=== PATIENT | female | born 1940 | race Caucasian/White ===

== ENCOUNTER → 2017-11-27 | Outpatient (CLI) | payer OTHER | LOC: FIMAGING 13:49 | PROVIDERS: ATTEND Internal Medicine | DX: Z12.31 Encounter for screening mammogram for malignant neoplasm of breast (principal) ==

== ENCOUNTER 2018-07-09 05:41 | Day surgery (SDC) | payer OTHER ==
--- NOTE | 2018-07-08 17:42 | GHP ---
[f rep st] PREOP HISTORY AND PHYSICAL DATE OF ADMISSION: 07/09/2018 ADMISSION DIAGNOSIS: Right shoulder rotator cuff tear. HISTORY OF PRESENT ILLNESS: Jenny is a 78-year-old female with an injury to her right shoulder, mary led to improve with conservative management. We obtained an MRI, which showed a complete supraspinat us cuff tear. Decision has been made to proceed with a right shoulder rotator cuff repair arthroscop ically. PAST MEDICAL HISTORY: Hypertension. PAST SURGICAL HISTORY: Knee arthroscopy in 2017. MEDICATIONS: Lisinopril 20 mg daily. ALLERGIES: No known drug allergies. SOCIAL HISTORY: She is . Lives here in town with her . Does not smoke. Occasional u se of alcohol. REVIEW OF SYSTEMS: No shortness of breath or chest pain. PHYSICAL EXAM: GENERAL: Healthy-appearing 78-year-old female. Alert oriented x3. VITALS: She is 5 feet 5 inches tall, weighs 130 pounds. Blood pressure is 118/66, heart rate is 69, respiratory rate is 14 on room air. HEENT: Normocephalic, atraumatic. Extraocular muscles intact. NECK: Supple. There is no lymphadenopathy. No JVD. CHEST: Clear to auscultation. CARDIOVASCULAR: Regular rate and rhythm. ABDOMEN: Soft, nontender, nondistended. EXTREMITIES: Focusing on the right shoulder, there is no obvious deformity or atrophy in the supraspinatus, infraspinatus, fossa. A little promi nence over the AC joint. She is tender at the rotator interval in the long head of the biceps. Acti ve range of motion. She has full extension, flexes to 150 degrees. Passively, I can get her to 175 degrees. There is 45 degrees of active external rotation, past fingers 75 degrees. Internal rotatio n, she can get her thumb to L1. Supraspinatus strength 4- out of 5, infraspinatus 4 out of 5. Subsc apularis 4+ out of 5. Positive impingement sign. Positive Speed test. 1+ sulcus sign. Negative ap prehension sign. IMAGING: MRI is reviewed. Full-thickness tear supraspinatus, minimal retraction. Articular cartila ge is in good shape. She has some partial fraying and tearing of the intra-articular segment of the biceps tendon. Degenerative fraying of the superior labrum, type 2 acromion with some subacromial bu rsitis. There is a large osteophyte off the AC joint. ASSESSMENT: Rotator cuff tear, right shoulder. PLAN: I recommend proceeding with a rotator cuff repair, subacromial decompression, distal clavicle excision, possible biceps tenodesis, and a labral debridement. This was described in detail to Cesia shaffer. Risks and benefits of the procedure including stiffness, tear of the repair necessitating further surgery, long period of immobilization 4 to 6 weeks in a sling and abduction pillow and physical the rapy, recovery time of 6 months to 1 year. She understands this, wishes to proceed. Her preoperativ e paperwork was completed today in the office. /[id number]/MODL
[2018-07-09] MEDS ORDERED: ceFAZolin 2 GM/DEXTROSE 100 ML IV ONE (05:48)
[2018-07-09] MEDS ORDERED: LR 1,000 ML IV ONE (05:49)
--- NOTE | 2018-07-09 06:45 | PDHPUP ---
History & Physical Update H&P update statement: This history and physical update is based on an assessment of the patient which was completed after admission or registration (within 24 hours), but prior to the surgery/procedure. H&P update: H&P reviewed & patient examined, no change in patient's condition since H&P completed
[2018-07-09] MEDS ORDERED: MIDAZOLAM 2 MG/2 ML VIAL IVP ONE (06:52)
--- NOTE | 2018-07-09 06:54 | PDANEPAE ---
ANE History of Present Illness R RTC tear s/f repair ANE Past Medical History - Cardiovascular History Hx Hypertension: Yes Hx Arrhythmias: No Hx Chest Pain: No Hx Coronary Artery / Peripheral Vascular Disease: No Hx CHF / Valvular Disease: No Hx Palpitations: No Cardiovascular History Comment: minor murmur never had any problems - Pulmonary History Hx COPD: No Hx Asthma/Reactive Airway Disease: No Hx Recent Upper Respiratory Infection: No Hx Oxygen in Use at Home: No Hx Sleep Apnea: No Sleep Apnea Screening Result - Last Documented: Negative Pulmonary History Comment: enviromental allergies - Neurologic History Hx Cerebrovascular Accident: No Hx Seizures: No Hx Dementia: No - Endocrine History Hx Diabetes: No - Renal History Hx Renal Disorders: No - Liver History Hx Hepatic Disorders: No - Neurological & Psychiatric Hx Hx Neurological and Psychiatric Disorders: No - Cancer History Hx Cancer: Yes Cancer History Comment: skin cancer - Congenital Disorder History Hx Congenital Disorders: No - Other Health History Other Health History: none - Chronic Pain History Chronic Pain: No - Surgical History Prior Surgeries: meniscus sx 2017. shoulder sx 20 yrs ago ANE Review of Systems Review of Systems: - Exercise capacity METS (RN): 4 METS ANE Patient History - Allergies Allergies/Adverse Reactions: iodine Allergy (Verified 07/09/18 06:15) shellfish derived Allergy (Verified 07/09/18 06:15) - Home Medications Home medications: home medication list seen and reviewed Home Medications: Aleve 07/02/18 [Last Taken 06/25/18] Lisinopril 07/02/18 [Last Taken 07/08/18] Multivitamin 07/02/18 [Last Taken 07/02/18] - NPO status NPO Status: no food or drink >8 hours NPO Since - Liquids (Date): 07/08/18 NPO Since - Liquids (Time): 22:00 NPO Since - Solids (Date): 07/08/18 NPO Since - Solids (Time): 20:30 - Anes Hx Anes Hx: no prior problems - Smoking Hx Smoking Status: Former smoker - Alcohol Use Alcohol Use: Occasionally - Family Anes Hx Family Anes Hx: none Family Hx Anesthesia Complications: none ANE Labs/Vital Signs - Vital Signs Blood Pressure: 136/92 Heart Rate: 54 Respiratory Rate: 16 O2 Sat (%): 91 Height: 165.1 cm Weight: 56.699 kg ANE Physical Exam - Airway Neck exam: FROM Mallampati Score: Class 2 - Pulmonary Pulmonary: no respiratory distress - Cardiovascular Cardiovascular: regular rate and rhythym - ASA Status ASA Status: II ANE Anesthesia Plan Anesthesia Plan: GA w LMA Regional Anesthesia: interscalene BP NB
[2018-07-09] MEDS ORDERED: CALCIUM CHLORIDE 1 GM/10 ML INJ ONE (06:58)
[2018-07-09] MEDS ORDERED: THROMBIN (BOVINE) 5,000 UNIT VIAL TP ONE (06:58)
[2018-07-09] MEDS ORDERED: BUPIVACAINE 0.5% 30 ML SDV ONE (06:58)
[2018-07-09] MEDS ORDERED: EPINEPHrine 30 MG/30 ML MDV (0.1 MG/0.1 ML) ONE (06:59)
[2018-07-09] MEDS ORDERED: LIDO/EPI 1% **Not for Epidural 20 ML MDV ONE (06:59)
[2018-07-09] MEDS ORDERED: LIDO/EPI 1% **for epidural** 30 ML SDV ONE (07:08)
[2018-07-09] MEDS ORDERED: fentaNYL 100 MCG/2 ML INJ ONE (07:10)
[2018-07-09] MEDS ORDERED: PROPOFOL/EMULSION 500 MG/50 ML BOTTLE IV ONE (07:10)
[2018-07-09] MEDS ORDERED: LIDOCAINE 2% JELLY 6 ML TOPICAL SYR ONE (07:15)
[2018-07-09] MEDS ORDERED: ONDANSETRON 4 MG/2 ML VIAL ONE (07:15)
[2018-07-09] MEDS ORDERED: DEXAMETHASONE 4 MG/ML VIAL ONE ×2 (07:16)
[2018-07-09] MEDS ORDERED: ePHEDrine SULFATE 25 MG/5 ML SYR ONE (08:01)
--- NOTE | 2018-07-09 08:52 | POSTOPPROG ---
Post Op Note Date of Operation: 07/09/18 Surgeon: Armando Dukes Greek Professor: Napoleon Rios Anesthesiologist: Onofre Pre-op Diagnosis: RC tear Rt Post-op Diagnosis: same Procedure: RCR, SAD, labral debridement Findings: full thickness RC tear Inf/Abcess present in the surg proc area at time of surgery?: No EBL: Minimal Complications: none
[2018-07-09] MEDS ORDERED: DEXAMETHASONE 4 MG/ML VIAL IVP PRN (09:23)
[2018-07-09] MEDS ORDERED: ALBUTEROL 3 ML DEYVIAL IH PRN (09:23)
[2018-07-09] MEDS ORDERED: NALOXONE HCL 0.4 MG/ML INJ IVP PRN (09:23)
[2018-07-09] MEDS ORDERED: oxyCODONE IR 5 MG TAB PO PRN (09:23)
[2018-07-09] MEDS ORDERED: LR 500 ML IV PRN (09:23)
[2018-07-09] MEDS ORDERED: PROMETHAZINE HCL 25 MG/ML INJ IVP PRN (09:23)
[2018-07-09] MEDS ORDERED: LABETALOL HCL 5 MG/ML 20 ML MDV IVP PRN (09:23)
[2018-07-09] MEDS ORDERED: METOCLOPRAMIDE 10 MG/2 ML VIAL IVP PRN (09:23)
[2018-07-09] MEDS ORDERED: fentaNYL 100 MCG/2 ML INJ IVP PRN (09:23)
[2018-07-09] MEDS ORDERED: MEPERIDINE 25 MG/0.5 ML AMP IVP PRN (09:23)
[2018-07-09] MEDS ORDERED: PHENYLEPHRINE HCL 100 MCG/ML SYR IVP PRN (09:23)
[2018-07-09] MEDS ORDERED: ONDANSETRON 4 MG/2 ML VIAL IVP PRN (09:23)
[2018-07-09 10:02] VITALS: BP 136/78
--- NOTE | 2018-07-09 10:08 | GOP ---
[f rep st] OPERATIVE REPORT DATE OF OPERATION: 07/09/2018 SURGEON: Armando Dukes MD DISTRIBUTION WAREHOUSE MANAGER: Ravin Rios, SHARED SERVICES REPRESENTATIVE, [facility] ANESTHESIA: Interscalene block with general. ANESTHESIOLOGIST: Dr. Adhikari. PREOPERATIVE DIAGNOSIS: Right shoulder rotator cuff tear. POSTOPERATIVE DIAGNOSIS: Right shoulder rotator cuff tear. PROCEDURE PERFORMED: 1. Arthroscopic rotator cuff repair. 2. Subacromial decompression. 3. Labral debridement. FINDINGS: INDICATIONS: The patient is a 78-year-old female with worsening right shoulder pain, failed conserva tive management. MRI was obtained, which showed a full-thickness supraspinatus tear. Decision was m fabiola to proceed with a rotator cuff repair. DESCRIPTION OF PROCEDURE: After appropriate informed consent was obtained, patient was taken to the operating room, placed supine on the operating table. Time-out was performed. Patient was identifie d. Correct site was identified. She received 2 g of Ancef preoperatively. Following interscalene b lock, general endotracheal tube anesthesia was administered. She was positioned in beach chair posit ion with all bony prominences well padded. Right upper extremity was prepped and draped in usual silvano rile fashion. I instilled 30 mL of 1% lidocaine with epinephrine 30 mL in normal saline through a standard posterio r portal. Made a small peterson incision, introduced the camera through a standard posterior portal. Ob tained an anterior portal under direct visualization, placed a 4.5 working cannula through there. Th ere was some mild superior and anterior labral fraying, undersurface biceps tendon fraying. I debrid ed this back with a motorized shaver. Undersurface of the rotator cuff was examined. There was a full-thickness tear in the anterior aspec t of the supraspinatus tendon. I repositioned the camera in the subacromial space, obtained a standa rd lateral portal under direct visualization, placed an 8 mm working cannula there, removed the 4.5 m m cannula from the anterior to the superior aspect, and then using electrocautery and motorized shave r, I debrided the subacromial space, roughened up the footprint using a motorized bur. I then passed 2 fiber tapes in a horizontal mattress configuration, pulling the limbs out through the anterior sup erior cannula, crisscrossing them and pulling back out. I tapped 2 agricultural aircraft pilot holes, placed 2 anchors, an d securely fixed the rotator cuff back over to the footprint, trimmed the suture ends. I then perfor med a subacromial decompression with motorized bur. There was good distance of the AC joint. There was 1 large inferior spur. I debrided this off with a motorized shaver. Instrumentation was withdrawn. Portal incisions were closed with 3-0 nylon. I instilled an addition al 15 mL of 0.5% Marcaine with epinephrine into the shoulder joint. Sterile dressing, sling, and abd uction pillow were applied. Patient was awakened from anesthesia, taken to recovery in satisfactory condition. There were no immediate intraoperative complications. Napoleon Rios's assistance was required throughout the entire case. IMPLANTS USED: Arthrex 4.5 mm SwiveLock anchors x2. COMPLICATIONS: None. DRAINS: None. /[id number]/MODL
--- NOTE | 2018-07-12 08:05 | POSTANESTH ---
Post Anesthetic Evaluation Cardiovascular Status: Normal, Stable Respiratory Status: Normal, Stable Level of Consciousness/Mental Status: Can Participate in Eval Pain Control: Adequate, Prn Tx Ordered Nausea/Vomiting Control: Adequate, Prn Tx Ordered Complications Possibly Related to Anesthesia: None Noted
== END 2018-07-09 10:35 | disposition home or self-care (01) ==
LOC: FSGY 05:41
PROVIDERS: ATTEND Orthopaedic Surgery
DX: S43.421A Sprain of right rotator cuff capsule, initial encounter (principal); W19.XXXA Unspecified fall, initial encounter; M75.51 Bursitis of right shoulder
CPT/HCPCS: C1713; J0171; J0690; J1100; J2250; J2405; J2704; J3010